=== PATIENT | female | born 1940 | race Caucasian/White ===

== ENCOUNTER 2017-01-24 07:49 | Day surgery (SDC) | payer MEDICARE, OTHER ==
[2017-01-24] MEDS ORDERED: LACTATED RINGERS 1,000 ML IV ONE (08:53)
[2017-01-24] MEDS ORDERED: fentaNYL 250 MCG/5 ML VIAL IVP ONE (09:14)
[2017-01-24] MEDS ORDERED: fentaNYL 100 MCG/2 ML VIAL IVP ONE (09:14)
[2017-01-24 11:00] VITALS: BP 111/40
== END 2017-01-24 07:50 | disposition home or self-care (01) ==
LOC: SDS 07:49
PROVIDERS: ATTEND Surgery
PROC: 0DBL8ZZ Excision of Transverse Colon, Via Natural or Artificial Opening Endoscopic (ICD-10-PCS; 2017-01-24)
PROC: 0DBN8ZZ Excision of Sigmoid Colon, Via Natural or Artificial Opening Endoscopic (ICD-10-PCS; 2017-01-24)
PROC: 0DBE8ZZ Excision of Large Intestine, Via Natural or Artificial Opening Endoscopic (ICD-10-PCS; 2017-01-24)
PROC: 0DBH8ZX Excision of Cecum, Via Natural or Artificial Opening Endoscopic, Diagnostic (ICD-10-PCS; 2017-01-24)
PROC: 0DBK8ZZ Excision of Ascending Colon, Via Natural or Artificial Opening Endoscopic (ICD-10-PCS; principal; 2017-01-24 09:00)
DX: K52.9 Noninfective gastroenteritis and colitis, unspecified (principal); D12.3 Benign neoplasm of transverse colon; D12.2 Benign neoplasm of ascending colon; D12.5 Benign neoplasm of sigmoid colon; K62.0 Anal polyp; K64.8 Other hemorrhoids; K57.30 Diverticulosis of large intestine without perforation or abscess without bleeding; I25.2 Old myocardial infarction; I10 Essential (primary) hypertension; E11.9 Type 2 diabetes mellitus without complications; I50.9 Heart failure, unspecified; K21.9 Gastro-esophageal reflux disease without esophagitis; Z87.891 Personal history of nicotine dependence
CPT/HCPCS: 45380; J3010; J7120; 88305

== ENCOUNTER 2017-02-09 07:55 | Outpatient (CLI) | payer MEDICARE, OTHER ==
[2017-02-09 12:50] LABS: BASOPHILS # (AUTO) 0.1 10^3/uL (0.0-0.1); BASOPHILS % (AUTO) 1.4 %; EOSINOPHILS # (AUTO) 0.2 10^3/uL (0.0-0.7); EOSINOPHILS % (AUTO) 3.6 %; HCT - HEMATOCRIT 39.4 % (37.0-47.0); HGB - HEMOGLOBIN 13.2 g/dL (12.0-16.0); LYMPHOCYTES # (AUTO) 1.3 10^3/uL (1.5-3.5); LYMPHOCYTES % (AUTO) 20.4 %; MEAN CORPUSCULAR HEMOGLOBIN 32.7 pg (27.0-31.0); MEAN CORPUSCULAR HGB CONC 33.4 g/dL (32.0-36.0); MEAN CORPUSCULAR VOLUME 97.9 fL (81.0-99.0); MONOCYTES # (AUTO) 0.7 10^3/uL (0.0-1.0); MONOCYTES % (AUTO) 10.4 %; NEUTROPHILS # (AUTO) 4.2 10^3/uL (1.5-6.6); NEUTROPHILS % (AUTO) 64.2 %; RED BLOOD COUNT 4.02 10^6/uL (4.20-5.40); RED CELL DISTRIBUTION WIDTH 13.7 % (12.0-15.0); UNCORRECTED WHITE BLOOD COUNT 6.6 x10^3/uL; WHITE BLOOD COUNT 6.6 x10^3/uL (4.8-10.8)
[2017-02-09 13:07] LABS: ALBUMIN/GLOBULIN RATIO 1.4 (1.0-2.2); BILIRUBIN,TOTAL 0.7 mg/dL (0.2-1.0); BUN - BLOOD UREA NITROGEN 28 mg/dL (6-20); CALCIUM 9.2 mg/dL (8.5-10.3); CARBON DIOXIDE - CO2 28 mmol/L (21-32); CHLORIDE 105 mmol/L (101-111); CHOL/HDL RATIO 5.1 (<4.4); CHOLESTEROL 147 mg/dL; GFR - MDRD 54 (>89); GLUCOSE 132 mg/dL (70-100); HDL CHOLESTEROL 29 mg/dL; LDL/HDL RATIO 2.3 (<4.4); POTASSIUM 3.8 mmol/L (3.5-5.0); SODIUM 140 mmol/L (135-145); TOTAL PROTEIN 6.6 g/dL (6.7-8.2); TRIGLYCERIDES 248 mg/dL; URIC ACID 4.9 mg/dL (2.6-7.2); VLDL CHOLESTEROL 50 mg/dL
[2017-02-09 13:12] LABS: HEMOGLOBIN A1C 0.8 g/dL
== END 2017-02-09 07:56 ==
LOC: LAB.WCP 07:55
PROVIDERS: ATTEND Family Medicine
DX: E11.9 Type 2 diabetes mellitus without complications (principal)
CPT/HCPCS: 36415; 80053; 80061; 82043; 83036; 84443; 84550; 85025

== ENCOUNTER 2017-07-21 08:06 | Outpatient (CLI) | payer MEDICARE, OTHER ==
--- NOTE | 2017-07-21 10:54 | Ultrasound Report ---
LEFT BREAST ULTRASOUND: 07/21/2017 CLINICAL INDICATION: Abnormal mammogram. TECHNIQUE: Real-time scanning was performed with commercial pest control representative static images obtained. FINDINGS: Ultrasound of the left upper outer quadrant was performed. At the 2 o'clock position, allyn roximately 10 cm from the nipple, there is a hypoechoic nodule, measuring 5 x 5 x 7 mm. The margins are irregular, and there is posterior acoustic shadowing. The appearance is suspicious. Biopsy is r ecommended. The nodule appears amenable to ultrasound-guided core needle biopsy. IMPRESSION: SUSPICIOUS NODULE CORRELATING WITH THE MAMMOGRAPHIC ABNORMALITY. RECOMMENDATION: Biopsy. The nodule appears amenable to ultrasound-guided core needle biopsy. BIRADS CATEGORY 4 - SUSPICIOUS ABNORMALITY. RESULTS AND RECOMMENDATIONS DISCUSSED WITH THE PATIENT AT THE TIME OF THE EXAMINATION, AND CALLED TO DR. FLORES ON 07/21/2017. BIOPSY IS SCHEDULED FOR 07/25/2017 AT 9:00 A.M. JOB #: [id number] EXT JOB #:[id number]
--- NOTE | 2017-07-21 17:27 | Mammography Report ---
DIGITAL DIAGNOSTIC LEFT MAMMOGRAM: 07/21/2017 CLINICAL INDICATION: Possible nodule on screening. TECHNIQUE: Left true lateral and spot compression views. COMPARISON: 07/11/2017, 01/27/2016, 07/04/2014, 06/29/2013, 06/30/2012, 05/27/2011, 05/13/2010. The left breast again demonstrates scattered fibroglandular densities. The nodular density in questi on, in the left upper-outer quadrant, persists on additional compression, with some irregular margins . No associated calcifications are seen. Please also refer to left breast ultrasound of the same da y. IMPRESSION: SUSPICIOUS ABNORMALITY, WITH HYPOECHOIC SHADOWING NODULE ON ULTRASOUND CORRELATING WITH THE MAMMOGRAPHIC ABNORMALITY. RECOMMENDATION: BIOPSY. THE NODULE APPEARS AMENABLE TO ULTRASOUND-GUIDED CORE NEEDLE BIOPSY. BIRADS CATEGORY: 4, SUSPICIOUS ABNORMALITY. Results and recommendations discussed with the patient at the time of the examination, and called to Dr. Garcia on 07/21/2017. Biopsy is scheduled for 07/25/2017 at 9 a.m. STANDARD QUALIFYING STATEMENTS 1. This examination was reviewed with the aid of Computed-Aided Detection (CAD). 2. A negative or benign imaging report should not delay biopsy if clinically suspicious findings are present. Consider surgical consultation if warranted. More than 5% of cancers are not identified b y imaging. 3. Dense breasts may obscure an underlying neoplasm. JOB #: [id number] EXT JOB #:[id number]
== END 2017-07-21 08:07 | disposition home or self-care (01) ==
LOC: DI 08:06
PROVIDERS: ATTEND Family Medicine
DX: N63.21 Unspecified lump in the left breast, upper outer quadrant (principal)
CPT/HCPCS: 76642; G0206

== ENCOUNTER 2017-07-25 08:38 | Outpatient (CLI) | payer MEDICARE, OTHER ==
[2017-07-25] MEDS ORDERED: BUPIVACAINE 0.5% PF 30 ML VIAL SUBQ ONE (10:54)
[2017-07-25] MEDS ORDERED: BUFFERED LIDOCAINE 10 ML SYRINGE IU ONE (10:54)
--- NOTE | 2017-07-25 14:34 | Ultrasound Report ---
ULTRASOUND-GUIDED CORE NEEDLE BIOPSY LEFT BREAST: 07/25/2017 CLINICAL INDICATION: A 7 mm nodule 2 o'clock position left breast. FINDINGS: Informed consent was obtained. Using standard aseptic technique, both 1% buffered lidocain e and Sensorcaine were injected into the left breast for local anesthesia. A small manda was made in t he skin with a #11 blade. A 12-gauge Celero vacuum-assisted device was used to obtain four specimens. A Celero marker was placed into the biopsy cavity under ultrasound guidance. The patient was taken to a separate mammography machine, and a two view digital mammogram was performed, documenting the guille er in the expected location and a small postbiopsy hematoma. The wound was dressed and ice applied. The patient was observed for approximately 15 minutes, then wa s discharged from [facility] in good condition following instructions on wound care and obtai gabriela biopsy results. The tissue was sent for histologic analysis. IMPRESSION: ULTRASOUND-GUIDED BIOPSY OF THE LEFT BREAST. AN ADDENDUM WILL BE MADE TO THIS REPORT WHEN PATHOLOGY IS REVIEWED TO ESTABLISH CONCORDANCE. JOB #: [id number] EXT JOB #:[id number]
[2017-07-26 15:44] VITALS: BP 111/79
--- NOTE | 2017-08-02 16:42 | Mammography Report ---
ORDER [id number] COPIED TO [id number] [facility] 08/02/2017 EXAM: [id number] US/BXBC ([id number]) ULTRASOUND-GUIDED CORE NEEDLE BIOPSY LEFT BREAST: 07/25/2017 CLINICAL INDICATION: A 7 mm nodule 2 o'clock position left breast. FINDINGS: Informed consent was obtained. Using standard aseptic technique, both 1% buffered lidocaine and Sensorcaine were injected into the left breast for local anesthesia. A small manda was made in the skin with a #11 blade. A 12- gauge Celero vacuum-assisted device was used to obtain four specimens. A Celero marker was placed into the biopsy cavity under ultrasound guidance. The patient was taken to a separate mammography machine, and a two view digital mammogram was performed, documenting the marker in the expected location and a small postbiopsy hematoma. The wound was dressed and ice applied. The patient was observed for approximately 15 minutes, then was discharged from [facility] in good condition following instructions on wound care and obtaining biopsy results. The tissue was sent for histologic analysis. IMPRESSION: ULTRASOUND-GUIDED BIOPSY OF THE LEFT BREAST. AN ADDENDUM WILL BE MADE TO THIS REPORT WHEN PATHOLOGY IS REVIEWED TO ESTABLISH CONCORDANCE. JOB #: [id number] EXT JOB #: [id number] Electrical Calibrator: Reading Radiologist: Rico Lam MD Releasing Radiologist: Rico Lam MD Released Date Time: 07/25/17 1501 <Electronically signed by Rico Lam MD> cc: Yu Long PA-C ADDENDUM ADDENDUM: Procedure performed by Dr. Lam. Pathology reviewed by Dr. Lam. 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 These results are concordant with the imaging findings. RECOMMENDATION: Surgical followup for treatment planning. The patient has been scheduled to obtain results from Dr. Garcia on 2016. Addendum Electrical Calibrator: SÁNCHEZ Addendum Reading Radiologist: Rico Lam MD Addendum Releasing Radiologist: Rico Lam MD Addendum Released Date Time: 07/27/17 1347 [facility]
== END 2017-07-25 08:39 | disposition home or self-care (01) ==
LOC: DI 08:38
PROVIDERS: ATTEND Physician Assistant Medical
DX: C50.412 Malignant neoplasm of upper-outer quadrant of left female breast (principal); Z17.0 Estrogen receptor positive status [ER+]
CPT/HCPCS: 19083; 88305; 88341; 88342; 88360; G0206

== ENCOUNTER 2017-08-05 10:38 | Outpatient (CLI) | payer MEDICARE, OTHER ==
[2017-08-05 11:10] LABS: BASOPHILS # (AUTO) 0.1 10^3/uL (0.0-0.1); BASOPHILS % (AUTO) 1.2 %; EOSINOPHILS # (AUTO) 0.2 10^3/uL (0.0-0.7); HCT - HEMATOCRIT 42.3 % (37.0-47.0); LYMPHOCYTES # (AUTO) 1.4 10^3/uL (1.5-3.5); LYMPHOCYTES % (AUTO) 22.6 %; MEAN CORPUSCULAR HEMOGLOBIN 32.1 pg (27.0-31.0); MEAN CORPUSCULAR HGB CONC 33.1 g/dL (32.0-36.0); MEAN CORPUSCULAR VOLUME 96.9 fL (81.0-99.0); MEAN PLATELET VOLUME 9.3 fL (7.9-10.8); MONOCYTES # (AUTO) 0.6 10^3/uL (0.0-1.0); MONOCYTES % (AUTO) 9.6 %; NEUTROPHILS # (AUTO) 3.8 10^3/uL (1.5-6.6); NEUTROPHILS % (AUTO) 62.6 %; RED BLOOD COUNT 4.37 10^6/uL (4.20-5.40); RED CELL DISTRIBUTION WIDTH 14.1 % (12.0-15.0); UNCORRECTED WHITE BLOOD COUNT 6.1 x10^3/uL; WHITE BLOOD COUNT 6.1 x10^3/uL (4.8-10.8)
== END 2017-08-05 10:39 | disposition home or self-care (01) ==
LOC: LAB 10:38
PROVIDERS: ATTEND Anesthesiology
DX: C50.912 Malignant neoplasm of unspecified site of left female breast (principal); Z79.4 Long term (current) use of insulin
CPT/HCPCS: 36415; 85025

== ENCOUNTER 2017-08-05 11:37 | Outpatient (CLI) | payer MEDICARE, OTHER | END 2017-08-05 23:59 | LOC: RT 11:37 | PROVIDERS: ATTEND Surgery | DX: Z01.810 Encounter for preprocedural cardiovascular examination (principal); C50.912 Malignant neoplasm of unspecified site of left female breast; Z79.4 Long term (current) use of insulin | CPT/HCPCS: 93005 ==

== ENCOUNTER 2018-06-06 07:41 | Outpatient (CLI) | payer MEDICARE, OTHER ==
[2018-06-06 13:17] LABS: BASOPHILS # (AUTO) 0.1 10^3/uL (0.0-0.1); BASOPHILS % (AUTO) 1.1 %; EOSINOPHILS # (AUTO) 0.3 10^3/uL (0.0-0.7); EOSINOPHILS % (AUTO) 4.4 %; HGB - HEMOGLOBIN 13.1 g/dL (12.0-16.0); LYMPHOCYTES # (AUTO) 1.1 10^3/uL (1.5-3.5); LYMPHOCYTES % (AUTO) 18.9 %; MEAN CORPUSCULAR HEMOGLOBIN 32.8 pg (27.0-31.0); MEAN CORPUSCULAR HGB CONC 33.2 g/dL (32.0-36.0); MEAN CORPUSCULAR VOLUME 98.9 fL (81.0-99.0); MEAN PLATELET VOLUME 9.9 fL (7.9-10.8); MONOCYTES # (AUTO) 0.6 10^3/uL (0.0-1.0); MONOCYTES % (AUTO) 9.7 %; NEUTROPHILS # (AUTO) 3.9 10^3/uL (1.5-6.6); NEUTROPHILS % (AUTO) 65.9 %; PLT - PLATELET COUNT 181 10^3/uL (130-450); RED BLOOD COUNT 3.99 10^6/uL (4.20-5.40); RED CELL DISTRIBUTION WIDTH 14.2 % (12.0-15.0); WHITE BLOOD COUNT 5.9 x10^3/uL (4.8-10.8)
[2018-06-06 13:59] LABS: HB2 TOTAL 13.5 g/dL; HEMOGLOBIN A1C 0.74 g/dL; HEMOGLOBIN A1C % 7.2 % (4.6-6.2)
[2018-06-06 14:01] LABS: ALBUMIN 3.6 g/dL (3.2-5.5); ALBUMIN/GLOBULIN RATIO 1.2 (1.0-2.2); BILIRUBIN,TOTAL 0.9 mg/dL (0.2-1.0); CALCIUM 9.4 mg/dL (8.5-10.3); CREATININE 1.1 mg/dL (0.4-1.0); TOTAL PROTEIN 6.6 g/dL (6.7-8.2)
== END 2018-06-06 07:42 ==
LOC: LAB.WCP 07:41
PROVIDERS: ATTEND Family Medicine
DX: E11.9 Type 2 diabetes mellitus without complications (principal)
CPT/HCPCS: 36415; 80053; 82043; 83036; 85025

== ENCOUNTER 2019-01-03 08:00 | Outpatient (CLI) | payer MEDICARE, OTHER ==
[2019-01-03 13:25] LABS: BASOPHILS # (AUTO) 0.1 10^3/uL (0.0-0.1); BASOPHILS % (AUTO) 1.6 %; EOSINOPHILS # (AUTO) 0.3 10^3/uL (0.0-0.7); EOSINOPHILS % (AUTO) 3.7 %; HGB - HEMOGLOBIN 13.1 g/dL (12.0-16.0); LYMPHOCYTES # (AUTO) 1.3 10^3/uL (1.5-3.5); LYMPHOCYTES % (AUTO) 18.2 %; MEAN CORPUSCULAR HEMOGLOBIN 32.4 pg (27.0-31.0); MEAN CORPUSCULAR HGB CONC 32.5 g/dL (32.0-36.0); MEAN CORPUSCULAR VOLUME 99.6 fL (81.0-99.0); MONOCYTES # (AUTO) 0.5 10^3/uL (0.0-1.0); MONOCYTES % (AUTO) 6.7 %; NEUTROPHILS # (AUTO) 5.1 10^3/uL (1.5-6.6); NEUTROPHILS % (AUTO) 69.8 %; PLT - PLATELET COUNT 180 10^3/uL (130-450); RED BLOOD COUNT 4.03 10^6/uL (4.20-5.40); RED CELL DISTRIBUTION WIDTH 14.2 % (12.0-15.0); WHITE BLOOD COUNT 7.3 x10^3/uL (4.8-10.8)
[2019-01-03 14:03] LABS: CALCIUM 9.5 mg/dL (8.5-10.3); CARBON DIOXIDE - CO2 31 mmol/L (21-32); CHLORIDE 100 mmol/L (101-111); GLUCOSE 148 mg/dL (70-100); SODIUM 138 mmol/L (135-145)
[2019-01-03 15:15] LABS: VLDL CHOLESTEROL 37 mg/dL
[2019-01-03 15:16] LABS: ALBUMIN 3.5 g/dL (3.2-5.5); ALBUMIN/GLOBULIN RATIO 1.1 (1.0-2.2); ALKALINE PHOSPHATASE 57 IU/L (42-121); ALT ALANINE AMINOTRANSFERASE 23 IU/L (10-60); AST ASPARTATE AMINOTRANSFERASE 24 IU/L (10-42); BILIRUBIN,TOTAL 0.7 mg/dL (0.2-1.0); BUN - BLOOD UREA NITROGEN 36 mg/dL (6-20); CHOL/HDL RATIO 3.9 (<4.4); CHOLESTEROL 109 mg/dL; CREATININE 1.1 mg/dL (0.4-1.0); GFR - MDRD 48 (>89); HDL CHOLESTEROL 28 mg/dL; LDL CHOLESTEROL,CALCULATED 44 mg/dL; LDL/HDL RATIO 1.6 (<4.4); TOTAL PROTEIN 6.6 g/dL (6.7-8.2); URIC ACID 4.8 mg/dL (2.6-7.2)
[2019-01-03 15:53] LABS: HB2 TOTAL 13.4 g/dL; HEMOGLOBIN A1C 0.6 g/dL; HEMOGLOBIN A1C % 6.2 % (4.6-6.2)
== END 2019-01-03 23:59 | disposition home or self-care (01) ==
LOC: LAB.WCP 08:00
PROVIDERS: ATTEND Family Medicine
DX: E11.9 Type 2 diabetes mellitus without complications (principal)
CPT/HCPCS: 36415; 80053; 80061; 82043; 83036; 83721; 84443; 84550; 85025

== ENCOUNTER 2019-05-10 08:00 | Outpatient (CLI) | payer MEDICARE, OTHER ==
[2019-05-10 12:36] LABS: BASOPHILS % (AUTO) 0.7 %; EOSINOPHILS # (AUTO) 0.2 10^3/uL (0.0-0.7); EOSINOPHILS % (AUTO) 3.5 %; HGB - HEMOGLOBIN 12.9 g/dL (12.0-16.0); LYMPHOCYTES # (AUTO) 1.1 10^3/uL (1.5-3.5); LYMPHOCYTES % (AUTO) 18.4 %; MEAN CORPUSCULAR HEMOGLOBIN 31.7 pg (27.0-31.0); MEAN CORPUSCULAR HGB CONC 30.1 g/dL (32.0-36.0); MEAN CORPUSCULAR VOLUME 105.2 fL (81.0-99.0); MEAN PLATELET VOLUME 11.9 fL (7.9-10.8); MONOCYTES # (AUTO) 0.5 10^3/uL (0.0-1.0); MONOCYTES % (AUTO) 8.6 %; NEUTROPHILS # (AUTO) 4.2 10^3/uL (1.5-6.6); NEUTROPHILS % (AUTO) 68.3 %; PLT - PLATELET COUNT 170 10^3/uL (130-450); RED BLOOD COUNT 4.07 10^6/uL (4.20-5.40); RED CELL DISTRIBUTION WIDTH 13.5 % (12.0-15.0); WHITE BLOOD COUNT 6.1 x10^3/uL (4.8-10.8)
[2019-05-10 13:13] LABS: ALBUMIN 3.7 g/dL (3.2-5.5); ALBUMIN/GLOBULIN RATIO 1.2 (1.0-2.2); BILIRUBIN,TOTAL 0.5 mg/dL (0.2-1.0); CALCIUM 9.2 mg/dL (8.5-10.3); TOTAL PROTEIN 6.9 g/dL (6.7-8.2)
== END 2019-05-10 23:59 | disposition home or self-care (01) ==
LOC: LAB.WCP 08:00
PROVIDERS: ATTEND Physician Assistant
DX: R05 Cough (principal); I50.9 Heart failure, unspecified
CPT/HCPCS: 36415; 80053; 85025

== ENCOUNTER 2019-05-10 08:00 | Outpatient (CLI) | payer MEDICARE, OTHER ==
--- NOTE | 2019-05-10 08:52 | XRAY Report ---
Reason: CHF Procedure Date: 05/10/2019 Accession Number: [id number] / [id number] Procedure: WCP - Chest 2 View X-Ray CPT Code: 00807 FULL RESULT: EXAM: CHEST RADIOGRAPHY EXAM DATE: 05/10/2019 08:05 AM. CLINICAL HISTORY: CHF. COMPARISON: CHEST 2 VIEW PA/LAT 06/23/2018 8:59 AM. TECHNIQUE: 2 views. FINDINGS: Lungs/Pleura: No focal opacities evident. No pleural effusion. No pneumothorax. Normal volumes. Mediastinum: Borderline to mildly enlarged heart size. Calcification in the aortic arch. Other: Elevated right diaphragm. Deformity left humeral head consistent with old trauma IMPRESSION: Clear lungs. No acute findings compared with 06/23/2018. RADIA
== END 2019-05-10 23:59 | disposition home or self-care (01) ==
LOC: DI.WCP 08:00 → EDSTATUS 13:29 → DI.WCP 23:59
PROVIDERS: ATTEND Physician Assistant
DX: I50.9 Heart failure, unspecified (principal)
CPT/HCPCS: 71046

== ENCOUNTER 2019-05-22 08:00 | Outpatient (CLI) | payer MEDICARE, OTHER | END 2019-05-22 23:59 | disposition home or self-care (01) | LOC: LAB.WCP 08:00 | PROVIDERS: ATTEND Family Medicine | DX: E11.9 Type 2 diabetes mellitus without complications (principal) | CPT/HCPCS: 82962 ==

== ENCOUNTER 2019-06-11 08:00 | Outpatient (CLI) | payer MEDICARE, OTHER ==
[2019-06-11 12:24] LABS: BASOPHILS # (AUTO) 0.1 10^3/uL (0.0-0.1); BASOPHILS % (AUTO) 1.3 %; EOSINOPHILS # (AUTO) 0.3 10^3/uL (0.0-0.7); EOSINOPHILS % (AUTO) 4.8 %; HGB - HEMOGLOBIN 12.9 g/dL (12.0-16.0); LYMPHOCYTES # (AUTO) 1.1 10^3/uL (1.5-3.5); LYMPHOCYTES % (AUTO) 19.6 %; MEAN CORPUSCULAR HEMOGLOBIN 30.9 pg (27.0-31.0); MEAN CORPUSCULAR HGB CONC 29.8 g/dL (32.0-36.0); MEAN CORPUSCULAR VOLUME 103.6 fL (81.0-99.0); MEAN PLATELET VOLUME 11.8 fL (7.9-10.8); MONOCYTES # (AUTO) 0.4 10^3/uL (0.0-1.0); MONOCYTES % (AUTO) 8.1 %; NEUTROPHILS # (AUTO) 3.6 10^3/uL (1.5-6.6); NEUTROPHILS % (AUTO) 65.8 %; PLT - PLATELET COUNT 179 10^3/uL (130-450); RED BLOOD COUNT 4.18 10^6/uL (4.20-5.40); RED CELL DISTRIBUTION WIDTH 13.7 % (12.0-15.0); WHITE BLOOD COUNT 5.4 x10^3/uL (4.8-10.8)
[2019-06-11 13:13] LABS: CREATININE,URINE 156.2 mg/dL; MICROALBUM/CREATININE RATIO,UR 9.6 ug/mg (<30.0); MICROALBUMIN,URINE 1.5 mg/dL (0-300.0)
[2019-06-11 13:24] LABS: HB2 TOTAL 13.8 g/dL; HEMOGLOBIN A1C 0.61 g/dL; HEMOGLOBIN A1C % 6.2 % (4.6-6.2)
[2019-06-11 13:38] LABS: ALBUMIN 3.7 g/dL (3.2-5.5); ALBUMIN/GLOBULIN RATIO 1.2 (1.0-2.2); ALKALINE PHOSPHATASE 61 IU/L (42-121); ALT ALANINE AMINOTRANSFERASE 20 IU/L (10-60); AST ASPARTATE AMINOTRANSFERASE 24 IU/L (10-42); BILIRUBIN,TOTAL 0.9 mg/dL (0.2-1.0); BUN - BLOOD UREA NITROGEN 34 mg/dL (6-20); CALCIUM 9.5 mg/dL (8.5-10.3); CARBON DIOXIDE - CO2 33 mmol/L (21-32); CHLORIDE 99 mmol/L (101-111); CHOL/HDL RATIO 4.1 (<4.4); CHOLESTEROL 122 mg/dL; CREATININE 1.3 mg/dL (0.4-1.0); GFR - MDRD 40 (>89); GLUCOSE 177 mg/dL (70-100); HDL CHOLESTEROL 30 mg/dL; LDL CHOLESTEROL,CALCULATED 61 mg/dL; SODIUM 140 mmol/L (135-145); TOTAL PROTEIN 6.8 g/dL (6.7-8.2); VLDL CHOLESTEROL 31 mg/dL
== END 2019-06-11 23:59 | disposition home or self-care (01) ==
LOC: LAB.WCP 08:00
PROVIDERS: ATTEND Family Medicine
DX: E11.9 Type 2 diabetes mellitus without complications (principal)
CPT/HCPCS: 36415; 80053; 80061; 82043; 82570; 83036; 83721; 84443; 85025

== ENCOUNTER 2020-03-27 13:52 | Outpatient (CLI) | payer MEDICARE, OTHER ==
[2020-03-27 14:14] LABS: CREATININE 1.2 mg/dL (0.4-1.0)
[2020-03-27] MEDS ORDERED: GADOBUTROL 15 MMOL/15 ML VIAL ONE (15:14)
== END 2020-03-27 13:53 | disposition home or self-care (01) ==
LOC: LAB 13:52
PROVIDERS: ATTEND Family Medicine
DX: H53.2 Diplopia (principal)
CPT/HCPCS: 36415; 82565

== ENCOUNTER 2020-03-29 15:40 | Outpatient (CLI) | payer MEDICARE, OTHER ==
[2020-03-29] MEDS ORDERED: GADOBUTROL 15 MMOL/15 ML VIAL ONE (15:57)
== END 2020-03-29 15:41 | disposition home or self-care (01) ==
LOC: DI 15:40
PROVIDERS: ATTEND Family Medicine
DX: Z53.9 Procedure and treatment not carried out, unspecified reason (principal)

== ENCOUNTER 2020-04-03 08:37 | Outpatient (CLI) | payer MEDICARE, OTHER ==
[2020-04-03 11:35] LABS: BASOPHILS # (AUTO) 0.1 10^3/uL (0.0-0.1); BASOPHILS % (AUTO) 0.8 %; EOSINOPHILS # (AUTO) 0.2 10^3/uL (0.0-0.7); EOSINOPHILS % (AUTO) 3.5 %; HGB - HEMOGLOBIN 13.1 g/dL (12.0-16.0); LYMPHOCYTES # (AUTO) 1.3 10^3/uL (1.5-3.5); LYMPHOCYTES % (AUTO) 20.1 %; MEAN CORPUSCULAR HGB CONC 30.5 g/dL (32.0-36.0); MEAN CORPUSCULAR VOLUME 104.6 fL (81.0-99.0); MONOCYTES # (AUTO) 0.5 10^3/uL (0.0-1.0); MONOCYTES % (AUTO) 8.2 %; NEUTROPHILS # (AUTO) 4.2 10^3/uL (1.5-6.6); NEUTROPHILS % (AUTO) 66.9 %; PLT - PLATELET COUNT 160 10^3/uL (130-450); RED CELL DISTRIBUTION WIDTH 13.8 % (12.0-15.0); WHITE BLOOD COUNT 6.2 x10^3/uL (4.8-10.8)
[2020-04-03 12:04] LABS: ALBUMIN 3.6 g/dL (3.2-5.5); ALBUMIN/GLOBULIN RATIO 1.1 (1.0-2.2); ALKALINE PHOSPHATASE 62 IU/L (42-121); ALT ALANINE AMINOTRANSFERASE 18 IU/L (10-60); AST ASPARTATE AMINOTRANSFERASE 17 IU/L (10-42); BILIRUBIN,TOTAL 0.8 mg/dL (0.2-1.0); BUN - BLOOD UREA NITROGEN 28 mg/dL (6-20); CALCIUM 8.6 mg/dL (8.5-10.3); CARBON DIOXIDE - CO2 31 mmol/L (21-32); CHLORIDE 101 mmol/L (101-111); CHOLESTEROL 143 mg/dL; CREATININE 1.1 mg/dL (0.4-1.0); GLUCOSE 137 mg/dL (70-100); HDL CHOLESTEROL 36 mg/dL; LDL CHOLESTEROL,CALCULATED 57 mg/dL; LDL/HDL RATIO 1.6 (<4.4); SODIUM 139 mmol/L (135-145); TOTAL PROTEIN 6.8 g/dL (6.7-8.2); VLDL CHOLESTEROL 50 mg/dL
[2020-04-03 12:05] LABS: CRP - C-REACTIVE PROTEIN < 1.0 mg/dL (0-1.0)
[2020-04-03 12:33] LABS: HB2 TOTAL 14.2 g/dL; HEMOGLOBIN A1C 0.69 g/dL; HEMOGLOBIN A1C % 6.6 % (4.6-6.2)
== END 2020-04-03 08:38 ==
LOC: LAB.WCP 08:37
PROVIDERS: ATTEND Family Medicine
DX: E11.9 Type 2 diabetes mellitus without complications (principal); R51 Headache
CPT/HCPCS: 36415; 80053; 80061; 83036; 83721; 85025; 85651; 86140

== ENCOUNTER 2020-05-25 12:06 | Outpatient (CLI) | payer MEDICARE, OTHER ==
--- NOTE | 2020-05-25 13:30 | XRAY Report ---
PROCEDURE: Lumbar Spine 2 View INDICATIONS: LOW BACK PAIN TECHNIQUE: 3 views of the lumbar spine were acquired. COMPARISON: None. FINDINGS: Bones: 5 [id number] vertebrae are present. There is normal bony alignment. No vertebral body compression fractures. No suspicious bony lesions. The bones are osteopenic. The disc heights are well preserved. Facet arthropathy is seen, which is m ost prominent inferiorly. Age-appropriate osteopenia can be seen. Soft tissues: Overlying bowel gas pattern is normal. No suspicious soft tissue calcifications. Ath erosclerotic calcification is seen. IMPRESSION: No significant abnormality is seen for age. Reviewed by: He Larsen MD on 05/25/2020 12:29 PM OPAL Approved by: He Larsne MD on 05/25/2020 12:29 PM OPAL Station ID: [id number]
== END 2020-05-25 12:07 | disposition home or self-care (01) ==
LOC: DI 12:06
PROVIDERS: ATTEND Family Medicine
DX: M54.5 Low back pain (principal)
CPT/HCPCS: 72100

== ENCOUNTER 2020-06-23 09:35 | Outpatient (CLI) | payer MEDICARE, OTHER ==
[2020-06-23 12:18] LABS: BASOPHILS # (AUTO) 0.1 10^3/uL (0.0-0.1); BASOPHILS % (AUTO) 1.1 %; EOSINOPHILS # (AUTO) 0.2 10^3/uL (0.0-0.7); EOSINOPHILS % (AUTO) 3.2 %; HGB - HEMOGLOBIN 13.1 g/dL (12.0-16.0); LYMPHOCYTES # (AUTO) 1.3 10^3/uL (1.5-3.5); MEAN CORPUSCULAR HEMOGLOBIN 32.2 pg (27.0-31.0); MEAN CORPUSCULAR VOLUME 103.7 fL (81.0-99.0); MEAN PLATELET VOLUME 12.1 fL (7.9-10.8); MONOCYTES # (AUTO) 0.6 10^3/uL (0.0-1.0); MONOCYTES % (AUTO) 10.3 %; NEUTROPHILS % (AUTO) 63.9 %; PLT - PLATELET COUNT 173 10^3/uL (130-450); RED BLOOD COUNT 4.07 10^6/uL (4.20-5.40); RED CELL DISTRIBUTION WIDTH 13.9 % (12.0-15.0); WHITE BLOOD COUNT 6.2 x10^3/uL (4.8-10.8)
[2020-06-23 12:37] LABS: ALBUMIN 3.6 g/dL (3.2-5.5); ALBUMIN/GLOBULIN RATIO 1.2 (1.0-2.2); ALKALINE PHOSPHATASE 61 IU/L (42-121); ALT ALANINE AMINOTRANSFERASE 17 IU/L (10-60); AST ASPARTATE AMINOTRANSFERASE 18 IU/L (10-42); BILIRUBIN,TOTAL 0.7 mg/dL (0.2-1.0); BUN - BLOOD UREA NITROGEN 38 mg/dL (6-20); CALCIUM 9.3 mg/dL (8.5-10.3); CARBON DIOXIDE - CO2 32 mmol/L (21-32); CHLORIDE 99 mmol/L (101-111); CHOL/HDL RATIO 4.7 (<4.4); CHOLESTEROL 147 mg/dL; CREATININE 1.3 mg/dL (0.4-1.0); GLUCOSE 140 mg/dL (70-100); HDL CHOLESTEROL 31 mg/dL; LDL CHOLESTEROL,CALCULATED 57 mg/dL; LDL/HDL RATIO 1.8 (<4.4); SODIUM 141 mmol/L (135-145); TOTAL PROTEIN 6.5 g/dL (6.7-8.2); VLDL CHOLESTEROL 59 mg/dL
[2020-06-23 12:40] LABS: MICROALBUM/CREATININE RATIO,UR 7.9 ug/mg (<30.0); MICROALBUMIN,URINE 1.2 mg/dL (0-300.0)
[2020-06-23 13:19] LABS: HEMOGLOBIN A1c% 6.7 % (4.27-6.07)
== END 2020-06-23 23:59 | disposition home or self-care (01) ==
LOC: LAB.WCP 09:35
PROVIDERS: ATTEND Family Medicine
DX: E11.9 Type 2 diabetes mellitus without complications (principal)
CPT/HCPCS: 36415; 80053; 80061; 82043; 82570; 83036; 83721; 84443; 85025

== ENCOUNTER 2020-09-06 13:40 | Outpatient (CLI) | payer MEDICARE, OTHER | END 2020-09-06 23:59 | disposition home or self-care (01) | LOC: LAB.R 13:40 | PROVIDERS: ATTEND Nurse Practitioner | DX: U07.1 COVID-19 (principal); J06.9 Acute upper respiratory infection, unspecified ==

== ENCOUNTER 2020-09-06 13:40 | Outpatient (CLI) | payer MEDICARE, OTHER | END 2020-09-06 23:59 | disposition home or self-care (01) | LOC: LAB.R 13:40 | PROVIDERS: ATTEND Nurse Practitioner | DX: J06.9 Acute upper respiratory infection, unspecified (principal) | CPT/HCPCS: 87275; 87276 ==

== ENCOUNTER 2020-09-27 23:30 | Outpatient (CLI) | payer MEDICARE, OTHER | END 2020-09-27 23:59 | disposition EMS.NT | LOC: EMS 23:30 | PROVIDERS: ATTEND Surgery | DX: Z03.89 Encounter for observation for other suspected diseases and conditions ruled out (principal) ==

== ENCOUNTER 2020-10-17 07:00 | Outpatient (CLI) | payer MEDICARE, OTHER ==
[2020-10-17 19:16] LABS: BASOPHILS # (AUTO) 0.1 10^3/uL (0.0-0.1); BASOPHILS % (AUTO) 1.1 %; EOSINOPHILS # (AUTO) 0.3 10^3/uL (0.0-0.7); EOSINOPHILS % (AUTO) 4.3 %; HGB - HEMOGLOBIN 13.4 g/dL (12.0-16.0); LYMPHOCYTES # (AUTO) 1.3 10^3/uL (1.5-3.5); LYMPHOCYTES % (AUTO) 19.8 %; MEAN CORPUSCULAR HEMOGLOBIN 31.8 pg (27.0-31.0); MEAN CORPUSCULAR HGB CONC 30.2 g/dL (32.0-36.0); MEAN CORPUSCULAR VOLUME 105.5 fL (81.0-99.0); MEAN PLATELET VOLUME 12.2 fL (7.9-10.8); MONOCYTES # (AUTO) 0.5 10^3/uL (0.0-1.0); MONOCYTES % (AUTO) 8.3 %; NEUTROPHILS # (AUTO) 4.3 10^3/uL (1.5-6.6); PLT - PLATELET COUNT 153 10^3/uL (130-450); RED BLOOD COUNT 4.21 10^6/uL (4.20-5.40); RED CELL DISTRIBUTION WIDTH 14.1 % (12.0-15.0); WHITE BLOOD COUNT 6.5 x10^3/uL (4.8-10.8)
[2020-10-17 19:32] LABS: ALBUMIN 3.9 g/dL (3.2-5.5); ALBUMIN/GLOBULIN RATIO 1.2 (1.0-2.2); ALKALINE PHOSPHATASE 55 IU/L (42-121); ALT ALANINE AMINOTRANSFERASE 19 IU/L (10-60); AST ASPARTATE AMINOTRANSFERASE 22 IU/L (10-42); BILIRUBIN,TOTAL 0.9 mg/dL (0.2-1.0); BUN - BLOOD UREA NITROGEN 32 mg/dL (6-20); CARBON DIOXIDE - CO2 28 mmol/L (21-32); CHLORIDE 99 mmol/L (101-111); CHOL/HDL RATIO 4.1 (<4.4); CHOLESTEROL 151 mg/dL; CREATININE 1.2 mg/dL (0.4-1.0); GLUCOSE 105 mg/dL (70-100); HDL CHOLESTEROL 37 mg/dL; LDL CHOLESTEROL,CALCULATED 74 mg/dL; TOTAL PROTEIN 7.1 g/dL (6.7-8.2); URIC ACID 4.6 mg/dL (2.6-7.2); VLDL CHOLESTEROL 40 mg/dL
[2020-10-17 20:15] LABS: HEMOGLOBIN A1c% 6.4 % (4.27-6.07)
[2020-10-17 21:01] LABS: CREATININE,URINE 184.8 mg/dL; MICROALBUM/CREATININE RATIO,UR 11.9 ug/mg (<30.0); MICROALBUMIN,URINE 2.2 mg/dL (0-300.0)
== END 2020-10-17 23:59 | disposition home or self-care (01) ==
LOC: LAB.WCP 07:00
PROVIDERS: ATTEND Family Medicine
DX: E11.9 Type 2 diabetes mellitus without complications (principal)
CPT/HCPCS: 36415; 80053; 80061; 82043; 82570; 83036; 83721; 84550; 85025

== ENCOUNTER 2021-01-24 | Outpatient (CLI) | payer MEDICARE, OTHER | END 2021-01-24 15:02 | disposition left against medical advice (07) ==

== ENCOUNTER 2021-05-13 10:46 | Outpatient (CLI) | payer MEDICARE, OTHER | END 2021-05-13 10:47 | disposition critical access hospital (66) | LOC: EMS 10:46 | DX: R53.1 Weakness (principal); R47.81 Slurred speech; R51.9 Headache, unspecified; M54.2 Cervicalgia; W18.39XA Other fall on same level, initial encounter; Y93.E1 Activity, personal bathing and showering; Y92.002 Bathroom of unspecified non-institutional (private) residence as the place of occurrence of the external cause | CPT/HCPCS: A0425; A0429 ==

== ENCOUNTER 2021-05-13 11:04 | Emergency (ER) | payer MEDICARE, OTHER ==
--- NOTE | 2021-05-13 11:18 | ED Physician Documentation ---
History of Present Illness - Stated complaint Stated Complaint: GLF - History obtained from History obtained from: Patient, EMS - Additonal information Additional information: 80-year-old woman who states that she has a malignant intracranial mass, she does not know any specific details. She is on steroids for that for the swelling, otherwise not currently in getting any treatment. Her oncologist is Dr. Todd at [facility]. Over the last week she has been generally weak. That culminated in a fall today hitting the back of her head. There was apparent loss of consciousness. She complains of neck and head pain. Was noted that she had slurred speech today as well. Review of Systems Ten Systems: 10 systems reviewed and negative Constitutional: reports: Reviewed and negative Eyes: reports: Reviewed and negative Ears: reports: Reviewed and negative Nose: reports: Reviewed and negative PD PAST MEDICAL HISTORY - Past Medical History Cardiovascular: Congestive heart failure, Hypertension, High cholesterol, Coronary artery disease, [place] Respiratory: None Endocrine/Autoimmune: Type 2 diabetes GI: GERD : None HEENT: None Psych: Depression Musculoskeletal: Osteoporosis Derm: None - Past Surgical History Past Surgical History: Yes General: Cholecystectomy, Appendectomy Ortho: Carpal Tunnel surgery /[employer] REPRESENTATIVE: Hysterectomy Cardiovascular: Angioplasty, Other HEENT: Tonsil/Adenoidectomy - Present Medications Home Medications: Ambulatory Orders Medication Instructions Recorded Confirmed Aspirin 81 mg PO QPM 04/11/13 01/24/17 Calcium [Calcio Nikhil] 500 mg PO DAILY 04/11/13 01/24/17 Esomeprazole Magnesium [Nexium] 20 mg PO DAILY 04/11/13 01/24/17 Insulin Regular Human [NovoLIN R] 6 unit SUBQ DAILY 04/11/13 01/24/17 Simvastatin [Zocor] 20 mg PO QPM 04/11/13 05/01/14 allopurinoL [Zyloprim] 300 mg PO DAILY 04/12/13 01/24/17 NPH, Human Insulin Isophane 8 units QAM 04/26/13 01/24/17 [Humulin N] NPH, Human Insulin Isophane 50 unit SQ HS 04/26/13 01/24/17 [Humulin N] Furosemide 20 mg PO DAILY 05/01/14 01/24/17 Losartan [Cozaar] 25 mg DAILY 05/01/14 01/24/17 carvediloL [Coreg] 18.75 mg BID 05/01/14 01/24/17 - Allergies Allergies/Adverse Reactions: Allergies Allergy/AdvReac Type Severity Reaction Status Date / Time No Known Drug Allergies Allergy Verified 05/13/21 11:26 - Social History Does the pt smoke?: No Smoking Status: Never smoker Does the pt drink ETOH?: No Does the pt have substance abuse?: No PD ED PE NORMAL - Vitals Vital signs reviewed: Yes - General General: Alert and oriented X 3 (Retching and vomiting, slightly somnolent), Other (Slightly slurred speech, very mild ptosis of the right eye lid.) - HEENT HEENT: PERRL, EOMI - Neck Neck: Supple, no meningeal sign, No bony TTP - Cardiac Cardiac: RRR, No murmur - Respiratory Respiratory: No respiratory distress, Clear bilaterally - Abdomen Abdomen: Non tender - Back Back: No CVA TTP, No spinal TTP - Derm Derm: Normal color, Warm and dry - Extremities Extremities: No edema, No calf tenderness / cord - Neuro Neuro: Alert and oriented X 3, Normal speech Results - Vitals Vitals: Vital Signs - 24 hr 05/13/21 05/13/21 11:16 12:30 Temperature 36 C L 36.4 C L Heart Rate 83 80 Respiratory 20 19 Rate Blood Pressure 208/91 H 188/94 H O2 Saturation 93 95 Oxygen O2 Source Room air - Labs Labs: Laboratory Tests 05/13/21 05/13/21 05/13/21 11:15 11:15 11:23 WBC 15.5 H RBC 4.34 Hgb 14.7 Hct 44.6 MCV 102.8 H MCH 33.9 H MCHC 33.0 RDW 13.3 Plt Count 240 MPV 10.9 H Neut # (Auto) 13.0 H Lymph # (Auto) 1.2 L Branch # (Auto) 0.8 Eos # (Auto) 0.3 Baso # (Auto) 0.1 Absolute Nucleated RBC 0.00 Nucleated RBC % 0.0 PT 11.0 INR 1.0 Sodium 143 Potassium 3.6 Chloride 101 Carbon Dioxide 30 Anion Gap 12.0 BUN 25 H Creatinine 1.0 Estimated GFR (MDRD) 53 L Glucose 126 H Calcium 9.3 - Rads (name of study) CT of the head/cspine Radiology: EMP read contemporaneously (CT of the head and cervical spine: Chronic and degenerative changes in the cervical spine, there is a left cerebellar mass with significant edema, effacement of the fourth ventricular lateral recess and sylvian aqueduct on the right) PD MEDICAL DECISION MAKING - ED course ED course: Further history from the by phone, he is available at [phone]. The tumor is presumed to be metastatic breast cancer because of a history of breast cancer, although no tissue diagnosis from the brain was ever sought. 80-year-old woman with known intracranial mass presents with worsening symptoms and syncope today. She has slurred speech, generalized weakness, right eye ptosis. Very large L cerebellar based mass with mass effect and imminnent Hydrocephalus. It sounds like she had already seen a surgeon and declined darryn claire based on risks, but when discussed that she needs some sort of management or would need to consider end-of-life measures or hospice she is very much interested in aggressive management. I spoke with the on-call neurosurgeon at [facility] Dr. Ronn Hardy who will see in consultation and she was accepted by Dr. Clemencia Holt at [facility] at 2:25 PM. Departure - Departure Disposition: 02 Transfer Acute Care Hosp Clinical Impression: Intracranial mass, Intracranial herniation, Syncope Condition: Serious
[2021-05-13 11:21] LABS: BASOPHILS # (AUTO) 0.1 10^3/uL (0.0-0.1); BASOPHILS % (AUTO) 0.4 %; EOSINOPHILS # (AUTO) 0.3 10^3/uL (0.0-0.7); EOSINOPHILS % (AUTO) 1.6 %; HCT - HEMATOCRIT 44.6 % (37.0-47.0); HGB - HEMOGLOBIN 14.7 g/dL (12.0-16.0); LYMPHOCYTES # (AUTO) 1.2 10^3/uL (1.5-3.5); MEAN CORPUSCULAR HEMOGLOBIN 33.9 pg (27.0-31.0); MEAN CORPUSCULAR VOLUME 102.8 fL (81.0-99.0); MEAN PLATELET VOLUME 10.9 fL (7.9-10.8); MONOCYTES # (AUTO) 0.8 10^3/uL (0.0-1.0); MONOCYTES % (AUTO) 5.2 %; NEUTROPHILS % (AUTO) 83.6 %; PLT - PLATELET COUNT 240 10^3/uL (130-450); RED BLOOD COUNT 4.34 10^6/uL (4.20-5.40); RED CELL DISTRIBUTION WIDTH 13.3 % (12.0-15.0); WHITE BLOOD COUNT 15.5 x10^3/uL (4.8-10.8)
[2021-05-13 11:30] LABS: CALCIUM 9.3 mg/dL (8.5-10.3); POTASSIUM 3.6 mmol/L (3.5-5.0)
[2021-05-13] MEDS ORDERED: ONDANSETRON 4 MG/2 ML VIAL IVP STA (11:42)
--- NOTE | 2021-05-13 12:29 | CT Report ---
PROCEDURE: CERVICAL SPINE WO INDICATIONS: head/neck injury TECHNIQUE: Noncontrast 3 mm thick sections acquired from the skull base to the T4 level. Sagittal and coronal r eformats were then constructed. For radiation dose reduction, the following was used: automated exp osure control, adjustment of mA and/or kV according to patient size. COMPARISON: None. FINDINGS: Image quality: Excellent. Bones: No fractures or dislocations. Visualized superior ribs are intact. Normal bone mineralizati on. Vertebral body height and alignment is maintained. Craniovertebral relationships are normal. Mild disc space narrowing and facet arthropathy noted resulting in mild central stenosis at C4-5 and C6-7 . At the C6 level, there is a dorsal extra-axial calcification measuring 5 x 7 mm associated with the r ight lamina resulting in mild central stenosis. Soft tissues: Prevertebral soft tissues are normal in thickness. No paravertebral hematomas. No ap ical pneumothoraces. IMPRESSION: 1. No evidence of fracture or traumatic malalignment. 2. 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 Incidental dorsal extra dural calcification may reflect a small calcified meningioma or degenerati ve calcification of the ligamentum flavum Reviewed by: Jayme Womack MD on 05/13/2021 11:28 AM OPAL Approved by: Jayme Womack MD on 05/13/2021 11:28 AM AKGIANLUCA Station ID: [id number]
[2021-05-13 12:30] VITALS: BP 188/94
--- NOTE | 2021-05-13 12:54 | CT Report ---
PROCEDURE: HEAD WO INDICATIONS: head/neck injury TECHNIQUE: Noncontrast 4.5 mm thick angled axial sections acquired from the foramen magnum to the vertex. For r adiation dose reduction, the following was used: automated exposure control, adjustment of mA and/or kV according to patient size. COMPARISON: None. FINDINGS: Image quality: Excellent. CSF spaces: As below. No evidence of current acute hydrocephalus. No transependymal migration of CSF. Brain: In the left cerebellar hemisphere, there is multifocal hypodensity with mass effect on the sachin mis and fourth ventricle. Hypodensity extends into the right cerebellar hemisphere as well. There is effacement of the fourth ventricular and left lateral recess and displacement of the sylvian aqueduct . Cerebellar tonsils however are in place. Otherwise, no intracranial hemorrhage present. Moderate atrophy and multifocal chronic ischemic black e. No supratentorial midline shift. Skull and face: Calvarium and visualized facial bones are intact, without suspicious lesions. Left occipital small scalp hematoma noted. Bilateral intraocular lens replacements noted. Sinuses: Visualized sinuses and mastoids are clear. IMPRESSION: 1. Atrophy and chronic ischemic change without intracranial hemorrhage or skull fracture. 2. Left cerebellar mass lesion with significant edema, effacement of fourth ventricular lateral reces s, and displacement of the sylvian aqueduct to the right. No evidence of current acute hydrocephalus. Critical results were discussed with the referring physician in the ER at the time of dictation. Reviewed by: Jayme Womack MD on 05/13/2021 11:52 AM OPAL Approved by: Jayme Womack MD on 05/13/2021 11:52 AM OPAL Station ID: [id number]
[2021-05-13] MEDS ORDERED: DEXAMETHASONE 10 MG/ML VIAL IVP STA (13:29)
[2021-05-13 17:16] LABS: B. PARAPERTUSSIS- RESP PCR PAN NOT DETECTED; B. PERTUSSIS- RESP PCR PANEL NOT DETECTED; C. PNEUMONIAE- RESP PCR PANEL NOT DETECTED; CORONAVIRUS 229E-RESP PCR NOT DETECTED; CORONAVIRUS HKU1-RESP PCR NOT DETECTED; CORONAVIRUS NL63-RESP PCR NOT DETECTED; CORONAVIRUS OC43-RESP PCR NOT DETECTED; HUMAN METAPNEUMOVIRUS NOT DETECTED; INFLUENZA A- RESP PCR PANEL NOT DETECTED; INFLUENZA B - RESP PCR PANEL NOT DETECTED; M. PNEUMONIAE- RESP PCR PANEL NOT DETECTED; PARAINFLUENZA VIRUS 1 NOT DETECTED; PARAINFLUENZA VIRUS 2 NOT DETECTED; PARAINFLUENZA VIRUS 3 NOT DETECTED; PARAINFLUENZA VIRUS 4 NOT DETECTED; RHINOVIRUS/ENTEROVIRUS NOT DETECTED; RSV- RESP PCR PANEL NOT DETECTED; SARS-CoV-2 -RESP PCR PANEL NOT DETECTED
== END 2021-05-13 17:00 | disposition short-term general hospital (02) ==
LOC: EDUNIT# → ED 11:04
DX: C79.31 Secondary malignant neoplasm of brain (principal); Z85.3 Personal history of malignant neoplasm of breast; R55 Syncope and collapse; M50.321 Other cervical disc degeneration at C4-C5 level; M48.02 Spinal stenosis, cervical region; I11.0 Hypertensive heart disease with heart failure; I50.9 Heart failure, unspecified; E11.9 Type 2 diabetes mellitus without complications; Z79.4 Long term (current) use of insulin; Z79.82 Long term (current) use of aspirin; Z20.822 Contact with and (suspected) exposure to COVID-19
CPT/HCPCS: 0202U; 36415; 80048; 85025; 85610; 93005; 96374; 96375; 99285

== ENCOUNTER 2021-05-13 16:57 | Outpatient (CLI) | payer MEDICARE, OTHER | END 2021-05-13 16:58 | disposition short-term general hospital (02) | LOC: EMS 16:57 | PROVIDERS: ATTEND Emergency Medicine | DX: R22.0 Localized swelling, mass and lump, head (principal) | CPT/HCPCS: A0425; A0428 ==

== ENCOUNTER 2021-05-25 13:36 | Outpatient (CLI) | payer MEDICARE, OTHER | END 2021-05-25 13:37 | disposition EMS.NT | LOC: EMS 13:36 | DX: Z03.89 Encounter for observation for other suspected diseases and conditions ruled out (principal) ==

== ENCOUNTER 2021-05-27 00:02 | Outpatient (CLI) | payer MEDICARE, OTHER | END 2021-05-27 00:03 | disposition short-term general hospital (02) | LOC: EMS 00:02 | DX: R53.1 Weakness (principal) | CPT/HCPCS: A0425; A0427 ==

== ENCOUNTER 2021-05-28 11:39 | Outpatient (CLI) | payer MEDICARE, OTHER | END 2021-05-28 11:40 | disposition short-term general hospital (02) | LOC: EMS 11:39 | DX: R06.00 Dyspnea, unspecified (principal); R06.2 Wheezing; R50.9 Fever, unspecified; R40.4 Transient alteration of awareness | CPT/HCPCS: A0425; A0427 ==